=== PATIENT | female | born 1980 | race Caucasian/White ===

== ENCOUNTER 2017-10-17 08:27 | Day surgery (SDC) | payer BC, OTHER ==
[2017-10-08 11:39] VITALS: BMI 25.5
[~2017-10-17 08:27] MED LIST: DEXAMETHASONE SOD PHOSPHATE 10 MG/ML 1 ML VIAL IV ONE; HEPARIN SODIUM,PORCINE 5,000 UNIT/ML 1 ML VIAL SQ ONE; LACTATED RINGERS 1,000 ML IV SCH; MIDAZOLAM 2 MG/2 ML VIAL IV PRN; MORPHINE SULFATE 4 MG/ML SYRINGE IV PRN; ONDANSETRON 4 MG/2 ML VIAL IVP ONE; SCOPOLAMINE 1.5MG/72HR PATCH TRANSDERM ONE; ceFAZolin IN SWFI 2 GM/20 ML SYRINGE IVP ONE
[2017-10-17] MEDS ORDERED: LIDOCAINE 1% 20 ML VIAL (10MG/ML) FOR IV START INTRADERMA ONE (09:50)
[2017-10-17] MEDS ORDERED: PROPOFOL 10 MG/ML 20 ML VIAL IV ONE (11:03)
[2017-10-17] MEDS ORDERED: KETOROLAC 30 MG/ML 1 ML VIAL ONE (11:03)
[2017-10-17] MEDS ORDERED: LIDOCAINE 1% INJ 10MG/ML (20 ML MDV) ONE (11:03)
[2017-10-17] MEDS ORDERED: MIDAZOLAM 2 MG/2 ML VIAL ONE (11:03)
[2017-10-17] MEDS ORDERED: fentaNYL (PF) 50 MCG/ML 2 ML AMP ONE (11:03)
[2017-10-17] MEDS ORDERED: BUPIVACAINE (PF) 0.25% 30 ML VIAL SQ ONE ×2 (11:21→11:29)
[2017-10-17] MEDS ORDERED: NALOXONE 0.4 MG/ML 1 ML VIAL IV PRN (11:38)
[2017-10-17] MEDS ORDERED: HYDROcodone/APAP 5-325MG 1 EACH TAB PO PRN (11:38)
--- NOTE | 2017-10-17 11:43 | P.OP ---
Date of Procedure: 10/17/17 Procedure(s) Performed: PREOPERATIVE DIAGNOSIS: Ventral hernia POSTOPERATIVE DIAGNOSIS: Same PROCEDURE: Ventral herniorrhaphy SURGEON: Luke EBL: Minimal ANESTHESIA: General COMPLICATIONS: None OPERATIVE PROCEDURE: The patient was placed in the operating table in the supine position. A vertical incision was made overlying the palpable mass in the midepigastric region using the scalpel. The subcutaneous tissues were dissected bluntly. The hernia sac was identified. The hernia sac was excised. The hernia sac was sent to pathology. The defect in the fascia was quite small measuring only approximately 5 mm. The fascia was dissected circumferentially and no additional hernia defects were identified. The defect was closed using interrupted knheur-ck-mesod 0 Ethibond sutures. The subcutaneous tissues were reapproximated using inverted 3-0 Vicryl sutures. The skin was closed using 4-0 Monocryl sutures. Steri-Strips and sterile dressings were then applied. DISPOSITION: Stable to recovery room
[2017-10-17 11:53] VITALS: TEMP 97.4
[2017-10-17 12:46] VITALS: RESP 18
[2017-10-17 12:58] VITALS: BP 121/70; PULSE 69
== END 2017-10-17 13:49 | disposition home or self-care (01) ==
LOC: OR 08:27
PROVIDERS: ATTEND Surgery
DX: K43.9 Ventral hernia without obstruction or gangrene (principal); F41.9 Anxiety disorder, unspecified; G47.00 Insomnia, unspecified; G43.909 Migraine, unspecified, not intractable, without status migrainosus; M54.2 Cervicalgia; R53.81 Other malaise; R63.4 Abnormal weight loss; Z68.25 Body mass index [BMI] 25.0-25.9, adult; Z85.3 Personal history of malignant neoplasm of breast; Z90.13 Acquired absence of bilateral breasts and nipples; F17.210 Nicotine dependence, cigarettes, uncomplicated; Z79.2 Long term (current) use of antibiotics; Z79.52 Long term (current) use of systemic steroids
CPT/HCPCS: 81025; 88302; 49560; J2250; J1644; J1100; J2405; J2001; J3010; J1885; J2704; J0690

== ENCOUNTER → 2018-12-28 | Outpatient (CLI) | payer BC ==
--- NOTE | 2018-12-31 12:32 | BMR ---
EXAMINATION TYPE: MR breast BILAT wo/w con DATE OF EXAM: 12/28/2018 COMPARISON: Prior imaging is greater than 10 years ago. None available for comparison. HISTORY: BRCA positive gene x 10 years ago, prior double mastectomy, pain and in discharge tia breast TECHNIQUE: A series of fat and water weighted images in the long and short axis views of both breasts are obtained in conjunction with dynamic contrast MRI with subtraction technique. The patient was i njected with 7.5 mL intravenous Gadavist gadolinium contrast. Three-dimensional and additional post processing imaging is created on independent workstation and reviewed during official interpretation of this study. FINDINGS: There is partial visualization of a T2 hyperintense right thyroid gland lesion measuring 9 mm. There is also partial visualization of a too small to accurately characterize subcapsular hepatic lesion within segment 4A. There are bilateral retropectoral silicone implants. No discrete evidence of fracture seen. No suspic ious axillary, intramammary, or internal mammary adenopathy is appreciated. No abnormal enhancement w ithin the remaining scant breast tissue. Susceptibility artifact seen bilaterally from numerous surgi anne clips. No suspicious T2 hyperintense lesion is seen. No nonmass enhancement. IMPRESSION: BI-RADS 2-benign. High-risk annual screening with MRI could be performed. In light of this patient's bilateral breast discharge MRI pituitary gland could evaluate for pituitary adenoma/prolactinoma. If there is bloody or clear nipple discharge surgical consult would be recommended.
== END | disposition home or self-care (01) ==
LOC: RADMRIMAIN 16:55
PROVIDERS: ATTEND Obstetrics & Gynecology Obstetrics
DX: N64.52 Nipple discharge (principal); Z15.01 Genetic susceptibility to malignant neoplasm of breast
CPT/HCPCS: 77049; A9585

== ENCOUNTER → 2022-07-27 | Outpatient (CLI) | payer OTHER ==
[2022-07-27 17:18] LABS: Chol/HDL Ratio 5.87 Ratio; LDL Cholesterol,Calculated 182.3 mg/dL (0.0-131.0)
== END | disposition home or self-care (01) ==
LOC: LABWHC1 08:59
PROVIDERS: ATTEND Family Medicine
DX: Z00.00 Encounter for general adult medical examination without abnormal findings (principal)
CPT/HCPCS: 36415; 80061

== ENCOUNTER → 2022-07-27 | Outpatient (CLI) | payer OTHER ==
[2022-07-27 16:51] LABS: African American GFR (CKD) 105.4 (60.0-200.0); Albumin 5.1 g/dL (3.8-4.9); Albumin/Globulin Ratio 2.04 (1.60-3.17); Anion Gap 13.1 mmol/L (10.00-18.00); BUN/Creat Ratio 22.63 Ratio (12.00-20.00); Blood Urea Nitrogen 18.1 mg/dL (9.0-27.0); Calcium 9.7 mg/dL (8.7-10.3); Carbon Dioxide 22.9 mmol/L (20.0-27.5); Globulin 2.5 g/dL (1.6-3.3); Non-African American GFR(CKD) 90.9 (60.0-200.0); Potassium 4.6 mmol/L (3.5-5.5); Total Bilirubin 1.4 mg/dL (0.30-1.20); Total Protein 7.6 g/dL (6.2-8.2)
[2022-07-27 16:54] LABS: Basophils # (A) 0.04 X 10*3/uL (0.00-0.10); Basophils % (A) 0.7 %; Eosinophils % (A) 3.6 %; HCT 43.5 % (37.2-46.3); HGB 14.4 g/dL (12.0-15.0); Immature Grans, Automated 0.2 %; Lymphocytes # (A) 1.58 X 10*3/uL (0.90-5.00); Lymphocytes % (A) 28.1 %; MCHC 33.1 g/dL (32.0-37.0); MCV 87.7 fL (80.0-97.0); Mean Platelet Volume 11.8 fL (9.5-12.2); Monocytes # (A) 0.43 X 10*3/uL (0.20-1.00); Monocytes % (A) 7.6 %; NRBC Per 100 WBC 0 /100 WBCS (0.0-0.0); Neutrophils # (A) 3.37 X 10*3/uL (1.80-7.70); Neutrophils % (A) 59.8 %; Platelet Count 269 X 10*3/uL (140-440); RBC 4.96 X 10*6/uL (4.10-5.20); RDW 12.4 % (11.5-14.5); WBC 5.63 X 10*3/uL (4.50-10.00)
== END | disposition home or self-care (01) ==
LOC: LABPAT 08:57
PROVIDERS: ATTEND Obstetrics & Gynecology Obstetrics
DX: Z01.812 Encounter for preprocedural laboratory examination (principal); Z15.09 Genetic susceptibility to other malignant neoplasm
CPT/HCPCS: 80053; 85025; 87086

== ENCOUNTER 2022-08-05 07:19 | Observation (INO) | payer BC, OTHER ==
[2022-07-29 15:56] VITALS: BMI 31.3
[2022-08-05] MEDS ORDERED: HYDROmorphone 0.5 MG/0.5 ML SYRINGE IVP PRN (07:44)
[2022-08-05] MEDS ORDERED: SCOPOLAMINE 1 MG/72 HR PATCH TRANSDERM ONE (07:44)
[2022-08-05] MEDS ORDERED: ONDANSETRON 4 MG/2 ML VIAL IVP ONE (07:44)
[2022-08-05] MEDS ORDERED: DEXAMETHASONE SOD PHOSPHATE 4 MG/ML 1 ML VIAL IV ONE (07:44)
[2022-08-05] MEDS: LACTATED RINGERS 1,000 ML IV SCH ×3 (08:07→17:52)
[2022-08-05] MEDS: LIDOCAINE 1% (10MG/ML) FOR IV START INTRADERMA PRN ×2 (08:07→08:08)
[2022-08-05] MEDS ORDERED: MIDAZOLAM 2 MG/2 ML VIAL IV ONE (08:36)
[2022-08-05] MEDS ORDERED: fentaNYL (PF) 50 MCG/1 ML VIAL IV ONE (08:36)
--- NOTE | 2022-08-05 08:52 | P.HPOB ---
History of Present Illness H&P Date: 08/05/22 Chief Complaint: BRCA gene mutation this is a 41-year-old non female that presents for robotic-assisted vaginal hysterectomy with bilateral salpingo-oophorectomy Patient has a known history of a positive BRCA gene mutation and wishes risk reducing surgery. Patient is currently using an IUD for cycle control and control. 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 Review of Systems Constitutional: Denies chills, Denies fatigue, Denies fever Ears, nose, mouth and throat: Denies headache Cardiovascular: Denies leg edema Respiratory: Denies dyspnea Gastrointestinal: Denies nausea, Denies vomiting Genitourinary: Denies Past Medical History Past Medical History: No Reported History Additional Past Medical History / Comment(s): HAS BRCA1 GENE FOR BREAST CANCER (HAS NOT HAD DX OF CANCER) History of Any Multi-Drug Resistant Organisms: None Reported Past Surgical History: Appendectomy, Breast Surgery, Section, Hernia Repair Additional Past Surgical History / Comment(s): Preventive double mastectomy, several reconstructive breast surgeries, chest artery rupture repair. Past Anesthesia/Blood Transfusion Reactions: Family History of Problems w/ Anesthesia, Motion Sickness, Postoperative Nausea & Vomiting (PONV) Additional Past Anesthesia/Blood Transfusion Reaction / Comment(s): "Grandfather did not have antibody to process anesthesia." Smoking Status: Former smoker - Past Family History Mother Family Medical History: No Reported History Medications and Allergies Home Medications Medication Instructions Recorded Confirmed Type No Known Home Medications 07/29/22 08/05/22 History Allergies Allergy/AdvReac Type Severity Reaction Status Date / Time No Known Allergies Allergy Verified 08/05/22 07:44 Exam Osteopathic Statement: *. No significant issues noted on an osteopathic structural exam other than those noted in the History and Physical/Consult. 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 The cervix appears healthy with a negative Pap smear recently. The uterus is nontender and mobile normal in size. No adnexal masses are appreciated. Assessment and Plan (1) BRCA gene mutation positive Current Visit: Yes Status: Acute Code(s): Z15.01 - GENETIC SUSCEPTIBILITY TO MALIGNANT NEOPLASM OF BREAST; Z15.09 - GENETIC SUSCEPTIBILITY TO OTHER MALIGNANT NEOPLASM SNOMED Code(s): 112722595 Plan: 41-year-old 0-3 that presents for risk reducing surgery. Patient has known BRCA2 gene positive and wishes definitive treatment with RAVH/BSO. surgery is reviewed and risks are discussed. Patient states understanding. Risks including bladder injury given HER-2 prior C-sections is reviewed. Multiple questions are answered and patient states understanding. We'll proceed operating suite for scheduled robotic cyst vaginal hysterectomy with bilateral salpingo-oophorectomy, diagnostic cystoscopy possible open to complete procedure.
[2022-08-05] MEDS ORDERED: ROCURONIUM 10 MG/ML (5 ML VIAL) IV ONE (08:54)
[2022-08-05] MEDS ORDERED: PROPOFOL 10 MG/ML 20 ML VIAL IV ONE (08:54)
[2022-08-05] MEDS ORDERED: SUCCINYLCHOLINE CHLORIDE 200 MG/10 ML VIAL IV ONE (08:54)
[2022-08-05] MEDS ORDERED: HYDROmorphone (PF) 1 MG/ML ONE (08:54)
[2022-08-05] MEDS ORDERED: SODIUM CHLORIDE 0.9% (PF) 10 ML VIAL ONE (08:54)
[2022-08-05] MEDS ORDERED: fentaNYL (PF) 50 MCG/ML 2 ML AMP ONE (08:54)
[2022-08-05] MEDS ORDERED: NEOSTIGMINE 1 MG/ML 10 ML VIAL ONE (08:54)
[2022-08-05] MEDS ORDERED: GLYCOPYRROLATE 0.2 MG/ML 2 ML VIAL ONE (08:54)
[2022-08-05] MEDS ORDERED: ACETAMINOPHEN IV (For NPO) 1,000 MG/100 ML VIAL ONE (08:54)
[2022-08-05] MEDS ORDERED: LIDOCAINE 2% INJ 20 MG/ML (2 ML VIAL) ONE (08:54)
[2022-08-05] MEDS ORDERED: ROPIVACAINE 5 MG/ML 30 ML VIAL ONE (08:54)
[2022-08-05] MEDS ORDERED: BUPIVACAINE (PF) 0.25% 30 ML VIAL SQ ONE ×2 (09:57→10:41)
--- NOTE | 2022-08-05 10:25 | P.ANPRN ---
Procedure Note - Anesthesia - Nerve Block Performed Bilateral Erector Spinae Single Time Out Performed: Yes ([id number]) Date of Procedure: 08/05/22 Procedure Start Time: 08:36 Procedure Stop Time: 08:41 Location of Patient: PreOp Indication: Acute Post-Operative Pain, Requested by Surgeon Specifically requested for management of pain by : Tamra Sears Sedation Type: Sedate with meaningful contact maintained Preparation: Sterile Prep Position: Prone Catheter: None Needle Types: Pajunk Needle Gauge: 21 Ultrasound used to visualize needle placement: Yes Ultrasound used to observe medication spread: Yes Injectate: 0.5% Ropivacaine (see comment for volume) (15cc + 10cc nacl pf each side) Blood Aspirated: No Pain Paresthesia on Injection Noted: No Resistance on Injection: Normal Image Stored and Saved: Yes Events: Uneventful and Well Tolerated
[2022-08-05] MEDS ORDERED: ONDANSETRON 4 MG/2 ML VIAL IVP PRN (10:45)
[2022-08-05] MEDS ORDERED: SIMETHICONE 80 MG CHEWABLE PO PRN (10:45)
[2022-08-05] MEDS ORDERED: Acetaminophen-Codeine 300-30mg TAB PO PRN (10:45)
[2022-08-05] MEDS ORDERED: IBUPROFEN 600 MG TAB PO PRN (10:45)
[2022-08-05] MEDS ORDERED: ACETAMINOPHEN IV (For NPO) 1,000 MG in EMPTY BAG 1 BAG IVPB ONE (11:15)
[2022-08-05] MEDS ORDERED: HYDROmorphone 0.5 MG/0.5 ML SYRINGE IVP ONE ×2 (12:46→13:46)
[2022-08-05 13:58] VITALS: RESP 16
[2022-08-05] MEDS: Acetaminophen-Codeine 300-30mg TAB PO PRN ×2 (14:51→20:18)
[2022-08-05] MEDS ORDERED: IBUPROFEN IV 800 MG in SODIUM CHLORIDE 0.9% 250 ML IV PRN (17:12)
[2022-08-05] MEDS: SENNOSIDES-DOCUSATE SODIUM 1 EACH TAB PO SCH (20:18)
[2022-08-06 05:06] VITALS: BP 120/78; PULSE 67; TEMP 97.8
[2022-08-06] MEDS: SENNOSIDES-DOCUSATE SODIUM 1 EACH TAB PO SCH (08:32)
--- NOTE | 2022-08-06 08:40 | P.DS ---
Providers Date of admission: 08/05/2022 Expected date of discharge: 08/06/22 Attending physician: Tamra Sears Primary care physician: Patel Mobley - Discharge Diagnosis(es) (1) BRCA gene mutation positive Current Visit: Yes Status: Acute Hospital Course: this 41-year-old female that presented to the hospital yesterday 08/05 for scheduled robotic-assisted vaginal hysterectomy with bilateral salpingo- oophorectomy, diagnostic cystoscopy. Patient elected risk reducing surgery given known brachial positive gene mutation. Patient was counseled on surgery and was taken back to the operating suite. Surgery was completed without difficulty. For full details on the surgery please see the operative report. Patient's postoperative course has been uneventful. On this postoperative day #1 she is ambulating and voiding without difficulty. She states she is tolerating clear liquids without nausea or vomiting. She denies concerns this morning. She states her pain is well-controlled with oral ibuprofen. She denies vaginal bleeding. Patient Condition at Discharge: Good Plan - Discharge Summary Discharge Rx Participant: Yes New Discharge Prescriptions: No Action No Known Home Medications Discharge Medication List No Known Home Medications 07/29/22 [History] Follow up Appointment(s)/Referral(s): Tamra Sears DO [Doctor of Osteopathic Medicine] - 2 Weeks Patient Instructions/Handouts: *Surgery [facility] - Scopalamine Patch Instructions, Laparoscopic Hysterectomy (DC), Laparoscopic Hysterectomy (GEN) Activity/Diet/Wound Care/Special Instructions: patient can expect spotting to menstrual-like bleeding postoperatively. [id number] ibuprofen 600 mg as needed for pain. Patient is encouraged to continue Senokot S2 at bedtime for bowel held. Patient is asked to call the office for routine post operative check in 2 weeks with myself. Should the patient have any concerns prior to discharge she is urged to call the office. Discharge Disposition: HOME SELF-CARE
[2022-08-06 09:10] LABS: Basophils # (A) 0.01 X 10*3/uL (0.00-0.10); Basophils % (A) 0.1 %; Eosinophils # (A) 0.06 X 10*3/uL (0.04-0.35); Eosinophils % (A) 0.8 %; HCT 36.8 % (37.2-46.3); HGB 12.3 g/dL (12.0-15.0); Immature Grans, Automated 0.3 %; Lymphocytes # (A) 2.36 X 10*3/uL (0.90-5.00); Lymphocytes % (A) 31.7 %; MCH 29.4 pg (27.0-32.0); MCHC 33.4 g/dL (32.0-37.0); MCV 87.8 fL (80.0-97.0); Mean Platelet Volume 11.6 fL (9.5-12.2); Monocytes # (A) 0.42 X 10*3/uL (0.20-1.00); Monocytes % (A) 5.6 %; NRBC Per 100 WBC 0 /100 WBCS (0.0-0.0); Neutrophils # (A) 4.57 X 10*3/uL (1.80-7.70); Neutrophils % (A) 61.5 %; Platelet Count 232 X 10*3/uL (140-440); RBC 4.19 X 10*6/uL (4.10-5.20); RDW 12.1 % (11.5-14.5); WBC 7.44 X 10*3/uL (4.50-10.00)
[2022-08-06] MEDS ORDERED: ACETAMINOPHEN TAB 325 MG TAB PO PRN (10:46)
--- NOTE | 2022-08-13 09:59 | P.OP ---
Date of Procedure: 08/05/22 Preoperative Diagnosis: BRCA gene mutation Postoperative Diagnosis: Same Procedure(s) Performed: Robotic-assisted vaginal hysterectomy, bilateral salpingo-oophorectomy, diagnostic cystoscopy, removal of IUD Anesthesia: JUDD Surgeon: Tamra Sears Director Statistical Programming #1: Vandana Sanabria Estimated Blood Loss (ml): 15 IV fluids (ml): 800 Urine output (ml): 100 Pathology: other (Uterus cervix bilateral fallopian tubes and ovaries) Condition: stable Disposition: PACU Indications for Procedure: Known BRCA gene mutation, desires risk reducing surgery Operative Findings: Uterus is noted to be globular with endometrial implants on the uterosacral ligaments, ovaries appeared grossly normal, significant dense scarring of the bladder to the anterior uterine wall Description of Procedure: Patient was taken back to the operating suite where general anesthesia was obtained without difficulty by the anesthesia department. She was prepped and draped in the normal sterile fashion in the dorsal lithotomy position. Negro catheter was then placed under sterile technique. The weighted speculum was placed in the posterior vaginal vault the anterior lip of the cervix was visualized and grasped with a single-tooth tenaculum. The IUD strings were visualized and grasped with a ring forcep and removed without difficulty. The endocervical canal was then serially dilated. The V care uterine made pillar was then placed air was placed into the balloon insufflated. The cervical cap was placed snugly against the cervix and all instruments were removed from the v aginal vault. Attention was then turned the patient's abdomen where approximately 2 finger breaths above the umbilicus a small skin incision is made. Through this incision the Veress needles placed. Once the Veress needle was deemed to be in the proper position with a drop of CO2 pressure CO2 insufflation was allowed to occur. At this time a 8 mm trocar and sleeve with a plc programmer scope in place was placed through the skin incision and toward the pneumoperitoneum. The additional port sites are then placed 10 cm lateral and 37 m inferior to midline port these are 8 mm ports and operative through the da Kayley machine. These reports are placed under direct visualization. The left upper quadrant a 12 mm skin incision is made and a 12 remainder trocar and sleeve is placed through the skin incision and toward the pneumoperitoneum. The da Kayley robot was docked in the usual fashion and the incisions are placed. In the right operative arm the monopolar scissors is placed in the left operative arm the bipolar forceps is placed. Attention was then turned to the patient's left infundibulopelvic ligament which was coagulated distally and proximally and divided hemostasis was appreciated this continued through the broad and toward the round which was coagulated and transected. The bladder flap from the left was then created using sharp dissection significant bladder adhesions were a ppreciated and taken down sharply with good visualization the bladder. The ascending branch the uterine artery was then visualized coagulated and transected. Hemostasis was noted on the left adnexa. Attention was then turned to the patient's right adnexa the right infundibulopelvic ligament was visualized coagulated distally and proximally divided. This continued through the broad and toward the round which was coagulated distally and proximally divided. Significant scarring was noted once again, and taken down sharply. Hemostasis was appreciated. The bladder flap from the right was densely adherent and taken down sharply. Good visualization of bladder throughout. The Negro catheter remains draining clear urine throughout the procedure. Ray-Pedro was then placed into the abdomen to further dissect the bladder away from the operating field. The ascending branch the uterine artery from the right was then coagulated distally and proximally and divided. Additional vessels were co agulated and transected. Hemostasis was appreciated. At this time the only remaining attachment was a vaginal attachment therefore colpotomy incision was made with in a circumferential fashion and the uterus fallopian tubes and ovaries were delivered through the vaginal cuff. The pelvis then copiously irrigated. Hemostasis was appreciated. The vaginal cuff was then closed with 0 Vicryl in a eiadeh-ab-gwnae fashion. Thomas 5 sutures were used to obtain hemostasis. On the left side bleeding was appreciated and a simple 0 Vicryl stitch was used to obtain hemostasis. The pelvis was then irrigated copiously. A small amount of bleeding was noted on the right bladder edge monopolar cautery was used to obtain hemostasis and Surgicel powder was placed along this area judiciously. Hemostasis was then noted. At this time all instruments removed from the patient's abdomen and the da Kayley was undocked. Attention was then turned the patient's Negro catheter which was removed without difficulty once again showing clear yellow urine in the Negro tubing. A cystoscope was performed. The cystoscope was placed through the urethra and toward the bladder bladder bubble was appreciated a complete survey of the bladder revealed no injury. Both ureteral orifices were noted to be spilling clear yellow urine. The cystoscope was removed and the Negro catheter was replaced. Attention was t hen turned the patient's abdomen. The skin incisions were closed with 4-0 Vicryl in a septic fashion. Steri-Strips and sterile dressings were applied. The vaginal vault was then cleared of any clots and debris no active bleeding was appreciated. All counts were noted to be correct 2 at the end of the procedure. Patient tolerated procedure well and was taken the recovery room awake in stable condition.
== END 2022-08-06 09:45 | disposition home or self-care (01) ==
LOC: OR 07:19 → 4FBP 10:50 → 5NMEDONC 10:51 → OR 08-06 06:50 → 5NMEDONC 08-06 06:50 → OR 08-06 09:45
PROVIDERS: ADMIT Obstetrics & Gynecology Obstetrics; ATTEND Obstetrics & Gynecology Obstetrics
DX: N72 Inflammatory disease of cervix uteri (principal); N83.11 Corpus luteum cyst of right ovary; N83.02 Follicular cyst of left ovary; G89.18 Other acute postprocedural pain; Z15.01 Genetic susceptibility to malignant neoplasm of breast; Z87.891 Personal history of nicotine dependence
CPT/HCPCS: 81025; 64999; 86900; 86901; 85025; 86850; 88307; 58262; 52000; G0378; J2250; J0330; J1100; J2710; J0690; J2405; J3010 ×2; J1170 ×2; J2795; J0131; J1741; J2704; J2001